=== PATIENT | female | born 1995 | race Caucasian/White ===

== ENCOUNTER 2016-11-09 13:40 | Inpatient (IN) | payer BC, OTHER ==
[~2016-11-09] VITALS: Ht 154.9 cm; Wt 50.8 kg
--- NOTE | 2016-11-09 17:06 | NUR ---
Intake assessment; Patient is a 21 year old female, AOX4 presented to [facility] to detoxify from heroin. Patient arrived at intake office at approximately 1630. She is the primary source of information. Patients admitting vital signs are as follows; BP 126/61, HR 91, respirations 18, Spo2 97%, denies pain at this time. Patient appears nervous and anxious but remained cooperative during assessment. Educated patient regarding unit protocols and policies, patient verbalized understanding. Will continue with further assessment when patient is up on the unit.
[2016-11-09 17:16] LABS: *URINE HCG, QUAL NEGATIVE (NEGATIVE)
[2016-11-09] MEDS ORDERED: ALBU18HF2 INH (17:21)
[2016-11-09] MEDS ORDERED: METO25TA6 PO (17:21)
[2016-11-09] MEDS ORDERED: QUET200T PO (17:21)
[2016-11-09] MEDS ORDERED: CLON0.1T PO (17:21)
[2016-11-09 17:22] LABS: *AMPHETAMINE, URINE NEGATIVE (NEGATIVE); *BARBITURATE, URINE POSITIVE (NEGATIVE); *CANNABINOID, URINE POSITIVE (NEGATIVE); *COCCAINE, URINE NEGATIVE (NEGATIVE); *OPIATE, URINE POSITIVE (NEGATIVE); *PHENCYCLIDINE SCREEN,URINE NEGATIVE (NEGATIVE)
--- NOTE | 2016-11-09 17:26 | NUR ---
Admission note; Patient is a 21 year old female, AOX4 and cooperative presented to [facility] to detoxify from heroin. Patient arrived at intake office at approximately 1630. She is the primary source of information. Patient is admitted under the care of Dr. Garcia to room 309. Patient's admitting vital signs are as follows; BP 126/61, HR 91, respirations 18, Spo2 97%, denies pain at this time. Patient appears nervous and anxious but remained cooperative during assessment. Educated patient regarding unit protocols and policies, patient verbalized understanding. Patient reported allergies to Penicillin. Patient denies history of seizures. Discussed substance use history. Patient first started using heroin when she was 18 years old then immediately progressed to a daily use. She currently uses 1-2 grams of Heroin via IV , at this rate she has been using consistently for 1 month. Patient last used Heroin on 11/08/16 at 1700 and used 1gram. Patient also reported smoking marijuana on a daily basis, she admitted smoking marijuana today prior to admission. Discussed medical and psych history. Patient reported history of anxiety and bipolar disorder, diagnosed when she was 16 years old. Patient also reported history of SVT , diagnosed in 2011. Patient reported that she was recently diagnosed with upper respiratory infection last week, but denies hospitalization, patient is currently asymptomatic. Patient denies having primary care physician or psychiatrist. Patient was recently at the [facility] and stayed there for 6 days, last month. Patient struggled with attempts to sobriety, longest sobriety lasted for 3 months (March 2016-June 2016). Patient stated that she wants to be clean and live a healthy lifestyle. Skin check done with no significant findings noted. Patients admitting COWS score is 4. MD was notified. Safety measures secured. Will continue to monitor patient.
[2016-11-09] MEDS ORDERED: DICYCLOMINE HCL 20 MG TABLET PO PRN (18:00)
[2016-11-09] MEDS ORDERED: MAG HYDROX/AL HYDROX/SIMETH 30 ML LIQUID UDC PO PRN (18:00)
[2016-11-09] MEDS ORDERED: CLONIDINE HCL 0.1 MG TABLET PO PRN (18:00)
[2016-11-09] MEDS ORDERED: DIAZEPAM 5 MG TABLET PO PRN (18:00)
[2016-11-09] MEDS ORDERED: BUPRENORPHINE HCL 2 MG TAB.SUBL SL PRN (18:00)
[2016-11-09] MEDS ORDERED: MAGNESIUM HYDROXIDE 30 ML LIQUID UDC PO PRN (18:00)
[2016-11-09] MEDS ORDERED: LOPERAMIDE HCL 2 MG CAPSULE PO PRN ×2 (18:00)
[2016-11-09] MEDS ORDERED: ACETAMINOPHEN 325 MG TABLET PO PRN (18:00)
[2016-11-09] MEDS ORDERED: DIAZEPAM 10 MG TABLET PO PRN ×2 (18:00)
[2016-11-09] MEDS ORDERED: LORAZEPAM 2 MG/1 ML VIAL IM PRN (18:00)
[2016-11-09] MEDS ORDERED: MIRALAX 17 GM POWD.PACK PO PRN (18:00)
[2016-11-09] MEDS ORDERED: ONDANSETRON 4 MG/2 ML VIAL IM PRN (18:00)
[2016-11-09] MEDS ORDERED: diphenhydrAMINE 50 MG CAPSULE PO PRN (18:00)
--- NOTE | 2016-11-09 19:00 | NUR ---
End of shift note; Patient is AOX4. Patient's UDS result came back positive for Barbiturates. Clarified barbiturates use with patient, patient reported using Phenobarbital for approximately 5 days last used 3 days ago 30mg. Patient denies dependence to Barbiturates. notified. ordered to DC ordered Valium taper/Valium one time dose. All safety measures secured. Met all needs. Addendum: 11/09/16 at 1906 by LINDSAY MEJIA LVN Patient to start 5 day Subutex taper tomorrow AM.
[2016-11-09] MEDS: IBUPROFEN 600 MG TABLET PO PRN (19:24)
--- NOTE | 2016-11-09 19:25 | NUR ---
PRN MOTRIN GIVEN ORDERED FOR C/O ABDOMINAL AND LOW BACK PAIN DUE TO MENSTRUAL PERIOD.WILL MONITOR.
--- NOTE | 2016-11-09 19:30 | NUR ---
START OF SHIFT Patient is a 21 year old female admitted to [facility] for Opiate dependency.Pt is A/O X 4 ,pleasant on approach,stated she is allergic to Penicillin,on regular diet,full code status. Patient denies history of seizures. PMH of anxiety, bipolar disorder,HEP C and SVT. Last COWS score is 4, ,all safety measures in place,call light is within reach,will be monitored for safety.
[2016-11-09 19:53] LABS: BASOPHILS % (AUTO) 0.5 % (0.0-2.0); EOSINOPHILS # (AUTO) 0.1 K/uL (0.0-0.7); EOSINOPHILS % (AUTO) 1.5 % (0.0-7.0); HEMATOCRIT 38.9 % (37-47); HEMOGLOBIN 13.2 G/DL (12.0-16.0); LYMPHOCYTES # (AUTO) 1.6 K/UL (0.8-4.8); LYMPHOCYTES % (AUTO) 24.2 % (20.5-51.5); MEAN CORPUSCULAR HEMOGLOBIN 30.4 UUG (27.0-31.0); MEAN CORPUSCULAR HGB CONC 34 g/dL (32.0-37.0); MEAN CORPUSCULAR VOLUME 89.2 FL (81.0-99.0); MONOCYTES # (AUTO) 0.7 K/UL (0.1-1.30); MONOCYTES % (AUTO) 10.3 % (0.0-11.0); NEUTROPHILS # (AUTO) 4.3 K/UL (1.8-8.9); NEUTROPHILS % (AUTO) 63.5 % (38.5-71.5); PLATELET COUNT (AUTO) 367 K/UL (150-450); RED BLOOD CELL COUNT(AUTO) 4.36 MIL/UL (4.2-5.4); WHITE BLOOD COUNT (AUTO) 6.7 K/UL (4.0-11.2)
[2016-11-09 20:00] VITALS: BP 116/77
[2016-11-09 20:02] LABS: ALANINE AMINOTRANSFERASE 28 U/L (14-59); ALKALINE PHOSPHATASE 84 U/L (50-136); ASPARTATE AMINOTRANSFERASE 23 U/L (15-37); BILIRUBIN,TOTAL 0.3 mg/dL (0.2-1.0); CARBON DIOXIDE 30 mmol/L (21-32); CHLORIDE 103 mmol/L (98-107); CREATININE 0.7 mg/dL (0.6-1.3); GLUCOSE 92 mg/dL (74-106); MAGNESIUM 2.1 mg/dL (1.8-2.4); TOTAL PROTEIN, SERUM 8.6 g/dL (6.4-8.2); UREA NITROGEN, BLOOD 5 mg/dL (7-18)
[2016-11-09 20:07] LABS: ETHANOL < 3 MG/DL (0-0)
--- NOTE | 2016-11-09 20:25 | NUR ---
PRN F/U PT VERBALIZES RELIEF FROM PAIN.
[2016-11-09] MEDS ORDERED: DIAZEPAM 10 MG TABLET PO ONE (21:00)
[2016-11-09] MEDS: METHOCARBAMOL 750 MG TABLET PO PRN (21:53)
--- NOTE | 2016-11-09 21:55 | NUR ---
PRN MEDICATIONS-- PRN MEDS ROBAXIN,CLONIDINE AND BENADRYL GIVEN ORDERED FOR C/O MUSCLE ACHES,ANXIETY/CHILLS AND INSOMNIA.WILL MONITOR FOR EFFECTIVENESS.
--- NOTE | 2016-11-09 22:55 | NUR ---
PRN F/U-- PRN MEDS EFFECTIVE IN CONTROLLING SYMPTOMS.PT NOTED TO BE SLEEPING IN BED,BREATHING IS EVEN AND NON LABORED.NO S/S OF DISTRESS NOTED,WILL CONTINUE TO MONITOR.
[2016-11-10] VITALS: BP 112/63
[2016-11-10 04:00] VITALS: BP 113/62
--- NOTE | 2016-11-10 06:50 | NUR ---
END OF SHIFT Patient is a 21 year old female admitted to [facility] for Opiate dependency.Pt is A/O X 4 ,she is allergic to Penicllin,on regular diet,full code status. Patient denies history of seizures. PMH of anxiety, bipolar disorder,HEP C and SVT. Last COWS score is 3.PRN meds Motrin,Robaxin,Clonidine and Benadryl were given and were effective.Pt to be started on 5 DAY Subutex taper today.She slept 7 hrs,fluid intake was 2304 mls,voided x 3 ;all safety measures are in place,call light is within reach,will be monitored for safety.
--- NOTE | 2016-11-10 07:57 | NUR ---
Start of shift; Received report from night nurse. Patient is a 21 year old female admitted on 11/09/16 for Opiate dependence. Patient to start 5 day Subutex taper today at 0900. Patient reported history of SVT, anxiety, bipolar disorder, Hepatitis C and URI. Patient received PRN Motrin/Robaxin/clonidine last night all noted to be effective. Patient is on fall precautions. Bed in lowest position, call light within reach. Will continue to monitor patient.
[2016-11-10 08:00] VITALS: BP 110/78
[2016-11-10] MEDS: MULTIVITAMINS,THERAPEUTIC TABLET PO SCH (08:49)
[2016-11-10] MEDS: BUPRENORPHINE HCL 2 MG TAB.SUBL SL SCH ×4 (08:49→21:17)
[2016-11-10] MEDS ORDERED: 5 DAY TAPER BUPRENORPHINE -SERENITY PROTOCOL SL PRN (09:00)
[2016-11-10] MEDS ORDERED: TUBERCULIN,PURIF.PROT.DERIV. 5 TU/0.1 ML TEST ID ONE (09:00)
[2016-11-10] MEDS ORDERED: 5 DAY TAPER VALIUM-SERENITY PROTOCOL PO PRN (09:00)
[2016-11-10 12:00] VITALS: BP 113/67
[2016-11-10 16:00] VITALS: BP 110/78
[2016-11-10] MEDS ORDERED: ONDANSETRON ODT 4 MG TAB.RAPDIS SL PRN (17:30)
--- NOTE | 2016-11-10 17:46 | NUR ---
PRN medication; Patient is complaining of nausea and had one episode of emesis, PRN Zofran 4mg ODT given per MD order. Will continue to monitor for effectiveness of medication.
--- NOTE | 2016-11-10 18:35 | NUR ---
End of shift note; Patient is AOX4. Patient is a 21 year old female admitted on 11/09/16 for Opiate dependence. Patient to start 5 day Subutex taper today at 0900. Patient reported history of SVT, anxiety, bipolar disorder, Hepatitis C and URI. Patient remained compliant with treatment plan and medication regime. Medications were effective in reducing withdrawal symptoms.All safety measures secured. PRN Zofran is effective, patient denies nausea at this time. Met all needs.
--- NOTE | 2016-11-10 19:40 | NUR ---
Start of Shift Patient is a 21 year old female admitted on 11/09/16 for Opiate dependence. Patient to start 5 day Subutex taper today at 0900. Patient now reported use of Phenobarb for approximately 5 days prior to entry to [facility]. Barbituate positive on drug screen MD is aware. Patient reported history of SVT, anxiety, bipolar disorder, Hepatitis C and URI. Patient remained compliant with treatment plan and medication regime. Alert and oriented x 4 Attending unit groups. Diet and Fluids tolerated. .All safety measures secured. Received Zofran x 1 on day shift for emesis. No further incidence of N/V noted.
[2016-11-10 20:00] VITALS: BP 110/61
[2016-11-10] MEDS ORDERED: LORAZEPAM 1 MG TABLET PO PRN ×2 (20:00)
[2016-11-10] MEDS ORDERED: LORAZEPAM 1 MG TABLET PO SCH (20:00)
[2016-11-10] MEDS: QUETIAPINE FUMARATE 200 MG TABLET PO SCH (21:17)
--- NOTE | 2016-11-10 21:18 | NUR ---
Late medication Ativan 2mg PO ordered for 1999 given at 2138. Patient was outside of room during med time. aware. Addendum: 11/10/16 at 2212 by CHRIS RIOS RN Ativan 2mg PO ordered for 1999 given at 2118.
[2016-11-10] MEDS ORDERED: LORAZEPAM 1 MG TABLET ONE (21:29)
[2016-11-11] VITALS: BP 107/62
--- NOTE | 2016-11-11 04:00 | NUR ---
COWS/CIWA deferred PAtient refused vital signs at 0400 due to sleep. Respirations 16, breathing even and unlabored. COWS/CIWA deferred for sleep
--- NOTE | 2016-11-11 06:48 | NUR ---
End of shift Patient is a 21 year old female admitted to [facility] on 11/09/16 for Opiate detox. She was using Heroin 1-2 grams daily for a month, Marijuana 7-10 grams daily for 5 years, and also Phenobarbital 30 mg daily for 5 days prior to admission to [facility]. Patient is on a five day Subutex and 4 day Ativan taper. She is a full code and on a regular diet. She has an Allergy to PCN. She has past medical history of anxiety, Bipolar D/O, SVT, and Hepatitis C. She is on fall precautions. Bed is in lowest and locked position with 2 side rails up for safety. Patient's Chest X Ray was completed on 11-10-16 in PM. Patient reported heavy menses, states she used approx 15 tampons in 24 hours. Patient states she has seen clots x 2, and showed nurse clot in toilet of dark red color, approximately 2 inches in diameter. MD and charge nurse notified. Vital signs remained stable. Encouraged increase fluids. VS at 2000: BP 110/61, P 60, T 98.0, SPO2 98%, R 16. COWS 8, CIWA 6. VS at 0000 BP 107/62, P 92, R 18, SPO2 98%, T 98.1. COWS 3, CIWA 3. Intake: 1035 ml Output: void x 3 no noted BM. Slept total of 6 hours.
--- NOTE | 2016-11-11 07:30 | NUR ---
BEGINNING OF SHIFT Patient endorsement report received from graphite pan drier tender nurse, all pertinent information discussed. Patient with admitting Dx: Opiate dependence, and substance use of Phenobarbital and marijuana. Under close observation, Patient with ongoing 5day Subutex taper and 4 day Ativan taper as ordered, and is scheduled to begin day 1 of Ativan taper and day 2 of Subutex taper. patient was administered no PRNs during graphite pan drier tender. with last cow score of: 2 and ciwa score of: 3. Fall and seizure precautions observed and in place. safety measures in place. will continue to monitor closely. Patient received in room, alert and oriented x4, educated regarding plan of care for the day and medication regimen with good verbal understanding. Will continue to monitor.
[2016-11-11 08:32] VITALS: BP 117/67
[2016-11-11] MEDS: GABAPENTIN 300 MG CAPSULE PO SCH ×2 (08:34→14:13)
[2016-11-11] MEDS: MULTIVITAMINS,THERAPEUTIC TABLET PO SCH (08:34)
[2016-11-11] MEDS: LORAZEPAM 1 MG TABLET PO SCH ×3 (08:34→20:40)
[2016-11-11] MEDS: BUPRENORPHINE HCL 2 MG TAB.SUBL SL SCH ×3 (08:35→20:41)
--- NOTE | 2016-11-11 10:25 | NUR ---
ENDORSED CARE Patient endorsement report given to nurse, all pertinent information discussed.
--- NOTE | 2016-11-11 10:26 | NUR ---
ASSUMED CARE Pt endorsement report received from primary nurse. All pertinent information disscussed. Will cont to monitor closely. All safety measures in place.
[2016-11-11 12:00] VITALS: BP 100/71
[2016-11-11 13:08] LABS: HEPATITIS B SURFACE AG Negative (Negative)
[2016-11-11 16:00] VITALS: BP 106/80
--- NOTE | 2016-11-11 19:07 | NUR ---
END OF SHIFT NOTE Gave report to night nurse, 21 year old female admitted for Opiate dependence, and substance use of Phenobarbital and marijuana. Pt cont on Subutex/Ativan taper tolerating well. Pt did not receive any PRN during shift. Last COWS-6, CIWA-5. Pt attended groups and activities. Encouraged Po fluids as tolerated. Pt remained compliant with plan of care. All safety measures in place,call light within reach. Pt endorsed to night nurse in stable condition.
--- NOTE | 2016-11-11 19:30 | NUR ---
Start of Shift Patient is a 21 year old female admitted on 11/09/16 for Opiate dependence. Patient is on a 5 day Subutex taper. Patient also started on 4 day Ativan taper for detox from Phenobarbitol. Patient with medical history of SVT, anxiety, bipolar disorder, Hepatitis C and URI. Patient remaining compliant with treatment plan and medication regime. Alert and oriented x 4 Attending unit groups. Diet and Fluids tolerated. .All safety measures secured. Last CIWA 5 COWS 6. Endorsement received from AM shift nurse.
[2016-11-11 20:00] VITALS: BP 119/74
[2016-11-11] MEDS: QUETIAPINE FUMARATE 200 MG TABLET PO SCH (20:41)
[2016-11-11] MEDS: CLONIDINE HCL 0.1 MG TABLET PO SCH (20:41)
[2016-11-11] MEDS ORDERED: GABAPENTIN 300 MG CAPSULE PO SCH ×2 (21:00)
[2016-11-12] VITALS: BP 110/70
--- NOTE | 2016-11-12 04:15 | NUR ---
COWS/CIWA deferred Refused VS PAtient refused vital signs at 0400 due to sleep. Respirations 16, breathing even and unlabored. COWS/CIWA deferred for sleep
--- NOTE | 2016-11-12 06:54 | NUR ---
End of shift Patient is a 21 year old female admitted to [facility] on 11/09/16 for Opiate detox. She was using Heroin 1-2 grams daily for a month, Marijuana 7-10 grams daily for 5 years, and also Phenobarbital 30 mg daily for 5 days prior to admission to [facility]. Patient is on a five day Subutex and 4 day Ativan taper. She is a full code and on a regular diet. She has an Allergy to PCN. She has past medical history of anxiety, Bipolar D/O, SVT, and Hepatitis C. She is on fall precautions. Bed is in lowest and locked position with 2 side rails up for safety. Patient reports continued noderate to heavy menses, states she used approx 7 tampons in 24 hours. MD is aware. Vital signs remained stable. Encouraged increase fluids. VS at 2000: BP 119/74, P 90, T 98.0, SPO2 98%, R 16. COWS 5, CIWA 4. VS at 0000 BP 110/70, P 91, R 16, SPO2 98%, T 98.1. COWS 3, CIWA 2. Intake: 1150ml Output: void x 2, no noted BM. Slept total of 5 hours.
--- NOTE | 2016-11-12 07:00 | NUR ---
Start of Shift Notes: Received patient in her room. Awake, alert and verbally responsive. Oriented x 4. Able to make needs known. Affect flat. Respirations even and unlabored. No SOB noted. Skin warm and dry to touch. Abdomen soft and non-distended with (+) BS in all 4 quadrants. No complains of N/V/D or constipation noted. Bladder non-distended. Voids independently. Denies dysuria. Ambulatory ad yo with steady gait. Patient is a 21 year old female admitted for opiate and phenobarbital dependence who was placed on a 5-day Subutex and 4-day Ativan taper as ordered. No adverse reactions noted. Has past medical hx of anxiety, bipolar disorder, SVT and Hep C. Allergic to PCN. FULL CODE. Regular diet. On fall and seizure precautions. Educated patient on her current plan of care for the day and her medication regimen. Encouraged support, oral fluid intake and group participation to learn new skills to prevent relapse. Safety precautions in place. Call light kept in reach. Will continue to monitor during the day.
[2016-11-12 08:00] VITALS: BP 100/60
[2016-11-12] MEDS: LORAZEPAM 1 MG TABLET PO SCH ×4 (08:09→20:15)
[2016-11-12] MEDS: GABAPENTIN 300 MG CAPSULE PO SCH ×3 (08:09→20:16)
[2016-11-12] MEDS: MULTIVITAMINS,THERAPEUTIC TABLET PO SCH (08:09)
[2016-11-12] MEDS ORDERED: BUPRENORPHINE HCL 2 MG TAB.SUBL SL SCH (09:00)
[2016-11-12 12:00] VITALS: BP 102/66
--- NOTE | 2016-11-12 12:57 | NUR ---
Cheeking meds: Patient noted with episode of cheeking her Ativan dose at 1300. Nurse asked patient that she needed to swallow med with fluids, however patient insisted on letting it dissolve under her tongue. Patient education was provided regarding proper way of taking Ativan and explained the risk and consequences of cheeking meds. Patient complied and eventually swallowed med. Thorough oral check done. No signs of cheeking noted. Addendum: 11/12/16 at 1309 by LAUREANO ESCOBAR LVN Notified Dr. Garcia of patient's behavior and per MD, continue to monitor the patient at this time and continue with thorough oral checks.
[2016-11-12] MEDS: BACLOFEN 10 MG TABLET PO SCH ×2 (14:14→20:16)
[2016-11-12] MEDS: DICYCLOMINE HCL 20 MG TABLET PO SCH ×2 (14:14→20:15)
[2016-11-12] MEDS: BUPRENORPHINE HCL 2 MG TAB.SUBL SL SCH ×2 (14:14→20:17)
[2016-11-12 16:00] VITALS: BP 110/60
[2016-11-12] MEDS: IBUPROFEN 600 MG TABLET PO PRN ×2 (16:29→20:17)
--- NOTE | 2016-11-12 16:29 | NUR ---
Motrin 600 mg PO given: Patient noted with complain of 5/10 menstrual cramps. Heat packs provided but ineffective. Medicated patient with Motrin 600 mg PO as ordered. Will monitor for effectiveness. Oral check done. No signs of cheeking noted.
[2016-11-12] MEDS: BOOST PLUS 237 ML LIQUID (RICH CHOCOLATE) PO SCH (16:31)
--- NOTE | 2016-11-12 17:29 | NUR ---
Re-assessment: Motrin Per patient, PRN Motrin was effective in reducing pain related to menstrual cramps.
--- NOTE | 2016-11-12 19:03 | NUR ---
End of Shift Notes: Patient continues to be on 5-day Subutex and 4-day Ativan taper to manage her withdrawal symptoms from opiates and barbiturates. VS monitored closely. No significant abnormalities noted. Withdrawal symptoms were closely monitored. Initial COWS 6/CIWA 4, patient presented with anxiety, chills, hot flashes, mild sweats, abdominal cramping and muscle aches. Last COWS 3/CIWA 2. Per patient Ativan and Subutex has been helping her with her withdrawal symptoms. Noted patient with episode of med diversion by francisco Solitario. Educated patient on the risk and consequences. Reassurance and reinforced unit's policies. Patient stated that she will comply. MD aware of patient's behavior. MD Jo (psych) in to see the patient with NNO made. Encouraged to attend group. Able to participate in group and activities. All needs met and attended. Will continue to monitor closely.
[2016-11-12 20:00] VITALS: BP 120/76
--- NOTE | 2016-11-12 20:00 | NUR ---
2000 Patient received awake, alert and sitting on top of her bed, brushing her hair with television playing very loudly. Patient states, " I have that on loud so I won't think about how upset I am that I'm on room restriction". Patient states further, " The nurse said that I was cheeking my medication and I wasn't. I wouldn't do that and nobody believes me. I don't have any credibility". Patient allowed to ventilate her feelings and then calm reassurances and simple, clear explanations given to her as needed regarding [facility] floor protocols. Patient reassured that her room restriction status will be reevaluated in AM by [facility] staff per floor protocol. Patient states, "Okay", and she is visibly calmer after explanations given. Patient is oriented to person, place, day, date, time and her personal situation. Patient's color is pink and her skin is warm, dry and intact. Patient states that she has been taking her Regular diet meal tray and drinking various fluids ad yo with no gastric issues currently. Patient states further that she has been attending [facility] groups regularly. Vital signs are: 98.4-97-16 120/76, O2 Sat 96%, COWS 3, CIWA 2. Patient was admitted on 11/09/16 for: Heroin, Marijuana and Phenobarbital withdrawal and she is currently on both a 5-Day Subutex medication taper and a 4-Day Ativan medication taper, which she has apparently been tolerating well thus far. Patient is overall verbally appropriate and cooperative when interacting with nurse, though she is a bit anxious and agitated to be on room restriction at this time. Bed is locked and in lowest position, bed rails are up X 1 and call light on bed within patient's easy reach.
[2016-11-12] MEDS: CLONIDINE HCL 0.1 MG TABLET PO SCH (20:16)
--- NOTE | 2016-11-12 20:17 | NUR ---
PRN MEDICATION: Prn Motrin 600 mg p.o. given per c/o menstrual cramps, 4-5/10 pain scale/
[2016-11-12] MEDS: ALBUTEROL SULFATE 8 GM HFA.AER.AD INH PRN (20:29)
--- NOTE | 2016-11-12 20:29 | NUR ---
PRN MEDICATION: Patient states, " Oh, I guess i could use my Ventolin Inhaler". No SOB noted, though few scattered wheezes and rare crackles noted per auscultation bilateral lungs. Prn Ventolin Inhaler, 2 puffs taken by patient.
--- NOTE | 2016-11-12 21:07 | NUR ---
Patient states that pain medication given to her was effective.
[2016-11-12] MEDS: QUETIAPINE FUMARATE 200 MG TABLET PO SCH (21:16)
--- NOTE | 2016-11-12 21:29 | NUR ---
REASSESSMENT PRN MEDICATION: Patient is downstairs on hospital patio with staff. Nurse informed by night Charge Nurse and patient's day primary nurse, that patient is allowed q 3hours to go for smoke break downstairs, along with staff and away from other patients. Unable to reassess patient at this time.
--- NOTE | 2016-11-13 | NUR ---
Patient refused to be awakened at this time for V/S to be taken.
--- NOTE | 2016-11-13 04:00 | NUR ---
Patient refused to be awakened for V/S to be done at this time.
--- NOTE | 2016-11-13 06:30 | NUR ---
0630 Patient slept a total of 7 hours and she had 3 voids and no stools. Total intake was 1,390 ml p.o. Prn medications given noted separately per floor protocol. V/SS afebrile, last COWS 3, last CIWA 2 at 1999. Patient is presently sleeping comfortably in stable condition with eyes closed and respirations quiet, even, unlabored at 12. Patient remains on room restriction, begun of Day shift.
--- NOTE | 2016-11-13 07:27 | NUR ---
START OF SHIFT NOTE: Received report from retail shift leader nurse. Patient is a 21 year old female admitted on 11/09/16 for Opiate dependence. Tapers completed. To be discharged this AM. Pt is alert and oriented X4. Color good, skin warm and dry. Respirations even and unlabored. Resting in bed. Safety precautions observed. Call light within reach. Addendum: 11/13/16 at 0732 by DONIS BERNARD RN Please disregard above note. Made in error.
--- NOTE | 2016-11-13 07:32 | NUR ---
START OF SHIFT NOTE: Received report from shift engineer nurse. Patient is a 21 year old female admitted on 11/09/16 for Opiate dependence. Pt is on a 5 day Subutex taper and 4 day Ativan taper. Tolerating well. Pt is alert and oriented X4. Color good, skin warm and dry. Respirations even and unlabored. Resting in bed. Safety precautions observed. Call light within reach.
[2016-11-13 08:28] VITALS: BP 120/76
[2016-11-13] MEDS: BOOST PLUS 237 ML LIQUID (RICH CHOCOLATE) PO SCH ×2 (08:32→17:18)
[2016-11-13] MEDS: BACLOFEN 10 MG TABLET PO SCH (09:13)
[2016-11-13] MEDS: GABAPENTIN 300 MG CAPSULE PO SCH ×2 (09:13→14:34)
[2016-11-13] MEDS: LORAZEPAM 1 MG TABLET PO SCH ×3 (09:14→21:14)
[2016-11-13] MEDS: DICYCLOMINE HCL 20 MG TABLET PO SCH ×3 (09:14→21:14)
[2016-11-13] MEDS: MULTIVITAMINS,THERAPEUTIC TABLET PO SCH (09:14)
[2016-11-13] MEDS: BUPRENORPHINE HCL 2 MG TAB.SUBL SL SCH ×3 (09:14→21:15)
--- NOTE | 2016-11-13 09:18 | NUR ---
VSS COWS 5 CIWA 8 c/o anxiety, sweating.
[2016-11-13 13:16] VITALS: BP 118/76
[2016-11-13] MEDS: GABAPENTIN 400 MG CAPSULE PO SCH ×2 (15:04→21:15)
[2016-11-13] MEDS: LAMOTRIGINE 25 MG TABLET PO SCH (15:09)
[2016-11-13 17:21] VITALS: BP 118/76
--- NOTE | 2016-11-13 18:48 | NUR ---
END OF SHIFT NOTE: Report given to hearing therapist nurse. Patient is a 21 year old female admitted on 11/09/16 for Opiate dependence. Pt is on a 5 day Subutex taper and 4 day Ativan taper. Tolerating well. Pt is alert and oriented X4. Color good, skin warm and dry. Respirations even and unlabored. . Vital signs have remained stable throughout shift . Last COWS 6 CIWA 5 @ 1500. Safety precautions observed. Call light within reach.
[2016-11-13 20:00] VITALS: BP 130/79
--- NOTE | 2016-11-13 20:00 | NUR ---
1999 Patient received awake, alert and just returning to her room # 309 from [facility] in recreation room. Gait is brisk, steady. Upon seeing nurse, patient states, " I'm off room restriction now". Patient is oriented to person, place, day, date, time and her personal situation. Patient states that she feels " perfectly fine" and she denies any pain or other discomforts at this time. Patient states that she continues to go to [employer] regularly and she is eating her regular diet meals and drinking various fluids ad yo with no gastric issue. Vital signs are: 98-96-18 130/79, O2 Sat 98%, COWS 2. Patient was admitted on 11/09/16 for: Heroin, Marijuana and Phenobarbital withdrawal and she is currently on both a 5-Day Subutex medication taper and a 4-Day Ativan medication taper, which she has apparently been tolerating well thus far. Patient is essentially cooperative and verbally appropriate when interacting with nurse, however her overall mood/affect/ speech is brusque, dismissive and impatient and eye contact is very brief. Patient states that she is going to go downstairs to hospital [facility], for a smoke break soon. Bed is locked and in lowest position, bed rails are up X 1 and call light within patient's easy reach.
[2016-11-13] MEDS: BACLOFEN 20 MG TABLET PO SCH (21:14)
[2016-11-13] MEDS: CLONIDINE HCL 0.1 MG TABLET PO SCH (21:14)
[2016-11-13] MEDS: QUETIAPINE FUMARATE 200 MG TABLET PO SCH (21:14)
--- NOTE | 2016-11-14 | NUR ---
Patient refused to be awakened for V/S to be done at this time.
--- NOTE | 2016-11-14 04:00 | NUR ---
Patient refused to be awakened for V/S to be done at this time.
--- NOTE | 2016-11-14 06:30 | NUR ---
0630 Patient slept a total of 7 hours and she had 2 voids and no stools. Total intake was 1,210 ml p.o. No Prn medications given this shift. V/SS afebrile, last COWS 2 at 1999. Patient is presently sleeping comfortably in stable condition with eyes closed and respirations even, unlabored at 12.
--- NOTE | 2016-11-14 07:27 | NUR ---
START OF SHIFT NOTE Patient is resting in bed this morning with respirations even and unlabored. Patient slept 7 hour last night per night nurse with last COWS 2 CIWA 2. No PRNs were given last night. Patient is on 5 day Subutex taper and 4 day Ativan taper both tolerating well. All needs have been met and all safety measures in place per hospital policy. WIll continue to monitor patient throughout my shift.
[2016-11-14] MEDS: BOOST PLUS 237 ML LIQUID (RICH CHOCOLATE) PO SCH ×2 (07:33→17:20)
[2016-11-14 08:41] VITALS: BP 112/68
[2016-11-14] MEDS ORDERED: LORAZEPAM 1 MG TABLET PO SCH (09:00)
[2016-11-14] MEDS ORDERED: BUPRENORPHINE HCL 2 MG TAB.SUBL SL SCH ×2 (09:00)
[2016-11-14] MEDS: MULTIVITAMINS,THERAPEUTIC TABLET PO SCH (09:16)
[2016-11-14] MEDS: CLONIDINE HCL 0.1 MG TABLET PO SCH ×2 (09:16→21:08)
[2016-11-14] MEDS: DICYCLOMINE HCL 20 MG TABLET PO SCH ×3 (09:16→21:07)
[2016-11-14] MEDS: GABAPENTIN 400 MG CAPSULE PO SCH ×3 (09:16→21:08)
[2016-11-14] MEDS: BACLOFEN 20 MG TABLET PO SCH ×3 (09:16→21:07)
[2016-11-14] MEDS: ALBUTEROL SULFATE 8 GM HFA.AER.AD INH PRN (11:01)
[2016-11-14 12:13] VITALS: BP 109/64
[2016-11-14] MEDS: LAMOTRIGINE 25 MG TABLET PO SCH (12:51)
--- NOTE | 2016-11-14 15:35 | NUR ---
ENDORSED PATIENT TO STAFF NURSE Report given to staff nurse. patient in stable condition. All safety measures in place per hospital policy. Patients needs have been met.
--- NOTE | 2016-11-14 15:40 | NUR ---
ASSUMED CARE FOR PT. SHE HAS NO COM[PLAINTS AT THIS TIME AND ATTENDING GROUP
[2016-11-14 16:00] VITALS: BP 90/60
--- NOTE | 2016-11-14 18:29 | NUR ---
END OF SHIFT: PT COMPLETED ATIVAN/SUBUTEX TAPER. LAST COWS 4 CIWA 3. DISCHARGE PLANNING IN PROGRESS. SHE IS COMPLIANT WITH MEDS AND GROUPS. ALL NEEDS MET. WILL PASS SHIFT REPORT TO ONCOMING NIGHT NURSE.
[2016-11-14 20:00] VITALS: BP 103/67
--- NOTE | 2016-11-14 20:00 | NUR ---
START OF SHIFT Received report from day shift nurse. Pt attended a group meeting and returned to her room after. She is a 21 yo female admitted to [facility] on 11/09 for opiate dependence. She is A&Ox4 and ambulatory. Allergic to PCNs, full code status, and on a regular diet. She has a PMH of SVT, hepatitis C, bipolar, and anxiety. On admission pt reported using heroin 1-2 grams per day x1 month, Phenobarbital 30mg x5 days, and marijuana. She completed a subutex and ativan taper and is scheduled for discharge tomorrow. Pt reports bilateral arm muscle aches and anxiety. Minimal other s/s of withdrawal. Fall precautions in place. Bed is down with call light in reach.
[2016-11-14] MEDS ORDERED: CLON0.1T14 PO (20:34)
[2016-11-14] MEDS ORDERED: IBUP-1955 PO (20:34)
[2016-11-14] MEDS ORDERED: DICY20TA28 PO (20:34)
[2016-11-14] MEDS ORDERED: BACL20TA PO (20:34)
[2016-11-14] MEDS ORDERED: GABA-536 PO (20:34)
[2016-11-14] MEDS ORDERED: LAMO25TA5 PO (20:35)
[2016-11-14] MEDS ORDERED: HYDROXYZINE PAMOATE 25 MG CAPSULE PO PRN (20:45)
[2016-11-14] MEDS: IBUPROFEN 600 MG TABLET PO PRN (21:08)
[2016-11-14] MEDS: QUETIAPINE FUMARATE 200 MG TABLET PO SCH (21:08)
--- NOTE | 2016-11-14 21:10 | NUR ---
PRN Motrin Pt reports bilateral upper arm muscle aches 09/23. PRN Motrin administered.
--- NOTE | 2016-11-14 22:10 | NUR ---
PRN Motrin reassessment PRN Motrin effective. Pt reports bilateral arm aches are reduced to 2/10.
[2016-11-15] VITALS: BP 97/56
--- NOTE | 2016-11-15 | NUR ---
0000 CIWA and COWS deferred CIWA and COWS ordered Q4HWA. Pt is lying in bed resting with eyes closed. Vital signs obtained. Safety measures in place.
--- NOTE | 2016-11-15 04:00 | NUR ---
0400 Vitals refused/COWS and CIWA deferred Pt refused to be woken for 0400 vitals. She is lying in bed resting with eyes closed. Respirations even and unlabored. COWS and CIWA ordered Q4HWA. Safety measures in place.
--- NOTE | 2016-11-15 07:00 | NUR ---
END OF SHIFT Report provided to day shift nurse. Pt is lying in bed resting. She is a 21 yo female admitted to [facility] on 11/09 for opiate dependence. She is A&Ox4 and ambulatory. Allergic to PCNs, full code status, and on a regular diet. She has a PMH of SVT, hepatitis C, bipolar, and anxiety. On admission pt reported using heroin 1-2 grams per day x1 month, Phenobarbital 30mg x5 days, and marijuana. Subutex and ativan tapers completed and she is scheduled for discharge today. Last COWS 4 and CIWA 2. PRN Motrin administered. She drank 1350mL and slept for 7 hours. Fall precautions in place. Bed is down with call light in reach.
--- NOTE | 2016-11-15 07:05 | NUR ---
Start of Shift Notes: Received patient in her room. Awake, alert and verbally responsive. Oriented x 4. Able to make needs known. Affect flat. Respirations even and unlabored. No SOB noted. Skin warm and dry to touch. Abdomen soft and non-distended with (+) BS in all 4 quadrants. No complains of N/V/D or constipation noted. Bladder non-distended. Voids independently. Denies dysuria. Ambulatory ad yo with steady gait. Patient is a 21 year old female admitted for opiate and phenobarbital dependence who was placed on a 5-day Subutex and 4-day Ativan taper as ordered. No adverse reactions noted. Has past medical hx of anxiety, bipolar disorder, SVT and Hep C. Allergic to PCN. FULL CODE. Regular diet. On fall and seizure precautions. Patient will be discharging today. Educated patient on the discharge process. Safety precautions in place. Call light kept in reach. Will continue to monitor during the day.
--- NOTE | 2016-11-15 07:30 | NUR ---
START OF SHIFT Pt 21 y/o female admitted for heroin dependence. Pt received in room with eyes closed resting, but easily arousable to name. Pt alert and oriented to name, place, and time. Perrla. Skin warm and dry to touch. Respirations even and unlabored. Pt is scheduled to be discharged today. It was reported that pt slept for 7 hours last night. Bed on lowest position with side rails x2 up for safety. Call light within reach. No distress noted at this time.
[2016-11-15 08:00] VITALS: BP 107/63
[2016-11-15] MEDS: MULTIVITAMINS,THERAPEUTIC TABLET PO SCH (08:25)
[2016-11-15] MEDS: GABAPENTIN 400 MG CAPSULE PO SCH (08:25)
[2016-11-15] MEDS: BACLOFEN 20 MG TABLET PO SCH (08:25)
[2016-11-15] MEDS: ALBUTEROL SULFATE 8 GM HFA.AER.AD INH PRN (08:25)
[2016-11-15 08:26] VITALS: BP 107/62
[2016-11-15] MEDS: CLONIDINE HCL 0.1 MG TABLET PO SCH (08:26)
[2016-11-15] MEDS: DICYCLOMINE HCL 20 MG TABLET PO SCH (08:26)
[2016-11-15] MEDS: METHOCARBAMOL 750 MG TABLET PO PRN (08:32)
[2016-11-15] MEDS: BOOST PLUS 237 ML LIQUID (RICH CHOCOLATE) PO SCH (08:35)
--- NOTE | 2016-11-15 08:35 | NUR ---
PRN Pt with c/o body aches 09/23. robaxin po prn per MD order given and tolerated well.
--- NOTE | 2016-11-15 08:53 | NUR ---
PRN Pt states experincing sob. Albuterol inh prn per MD order given and tolerated well.
[2016-11-15] MEDS ORDERED: BUPRENORPHINE HCL 2 MG TAB.SUBL SL SCH (09:00)
--- NOTE | 2016-11-15 09:28 | NUR ---
DISCHARGE Pt discharged to [facility]. Pt alert and oriented to name, place, and time. Perrla. Skin warm and dry to touch. Respiration even unlabored. No hand tremors noted. Pt excited about discharge. All prescriptions, discharge papers, home medications, and belongings in the cabinet packed in pt bag. VS wnl. No distress noted.
--- NOTE | 2016-11-15 09:53 | NUR ---
CORRIE MARTINEZ Pt states pain 04/26. Addendum: 11/15/16 at 1258 by KELVIN SANTIAGO RN incorrect time [id number]
--- NOTE | 2016-11-15 09:53 | NUR ---
CORRIE MARTINEZ Pt with no c/o sob noted. Addendum: 11/15/16 at 1259 by KELVIN SANTIAGO RN incorrect time [id number]
== END 2016-11-15 09:28 | disposition other institution (70) | DRG 895 ==
LOC: SRC 16:19
PROVIDERS: ADMIT Internal Medicine; ATTEND Internal Medicine
PROC: HZ2ZZZZ Detoxification Services for Substance Abuse Treatment (ICD-10-PCS; principal; 2016-11-09)
PROC: HZ41ZZZ Group Counseling for Substance Abuse Treatment, Behavioral (ICD-10-PCS; 2016-11-12)
DX: F11.23 Opioid dependence with withdrawal (principal); F31.9 Bipolar disorder, unspecified; Z81.8 Family history of other mental and behavioral disorders; F13.230 Sedative, hypnotic or anxiolytic dependence with withdrawal, uncomplicated; Z81.3 Family history of other psychoactive substance abuse and dependence; Z79.899 Other long term (current) drug therapy; Z59.1 Inadequate housing; F17.210 Nicotine dependence, cigarettes, uncomplicated; Z20.5 Contact with and (suspected) exposure to viral hepatitis; F12.90 Cannabis use, unspecified, uncomplicated
CPT/HCPCS: 36415; 70030-TC; 71010; 80307; 80345; 80349; 80361; 83735; 84703; 85025; 86580; 86592; 86705; 86803; 87340; 87806; A4663; G0480; J3535; Q0162; Q0163